=== PATIENT | male | born 1955 | race Caucasian/White ===

== ENCOUNTER → 2025-02-26 12:52 | Outpatient (REF) | payer BC, SELFPAY | LOC: RAD 12:52 | DX: Z18.10 Retained metal fragments, unspecified (principal) | CPT/HCPCS: 70030 ==

== ENCOUNTER → 2025-03-02 19:25 | Outpatient (REF) | payer BC, SELFPAY | LOC: MRI 19:25 | PROVIDERS: FAMILY PHYSICIAN Internal Medicine | DX: R41.89 Other symptoms and signs involving cognitive functions and awareness (principal); R68.89 Other general symptoms and signs | CPT/HCPCS: 70553; A9575 ==